=== PATIENT | male | born 1940 | race Caucasian/White ===

== ENCOUNTER 2016-05-15 10:04 | Emergency (ER) | payer OTHER ==
[~2016-05-15] VITALS: Ht 177.8 cm; Wt 63.5 kg
--- NOTE | ~2016-05-15 | EKG ---
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 [place]: [place] : 1940 Requested By: Kasandra Santamaria Order Number: [id number] MD: Afshin Schaffer Measurements Intervals [place] Rate: 66 P: 28 ND: 198 QRS: -16 QRSD: 92 T: 40 QT: 415 QTc: 435 Interpretive Statements Sinus rhythm Borderline left axis deviation No previous ECG available for comparison Electronically Signed On 05-15-2016 11:14:07 PHARMACY RETAIL SUPPORT SPECIALIST by Afshin Schaffer [email or web address] <ELECTRONICALLY SIGNED> By: Afshin Schaffer MD 05/15/16 1114 1049 1049 Afshin Schaffer MD /EPI
[2016-05-15 11:14] LABS: ABSOLUTE NEUTROPHILS 6.9 thou/uL (1.4-8.2); BASOPHILS 0.4 % (0.0-2.0); HEMATOCRIT 46.7 % (42.0-52.0); HEMOGLOBIN 15.7 gm/dL (14.0-18.0); LYMPHOCYTES 13.4 % (24.0-44.0); MCH 31.1 pg (26.0-34.0); MCHC 33.7 % (28.0-37.0); MCV 92.3 fL (80.0-100.0); PLATELET COUNT 242 thou/uL (150-400); POLYS 75.2 % (36.0-66.0); RBC 5.06 mil/uL (4.50-6.00); RDW 13.4 % (10.5-14.5); WBC 9.1 thou/uL (4.0-11.0)
[2016-05-15 11:15] LABS: MANUAL DIFF NO
[2016-05-15 11:26] LABS: APTT 26.8 Seconds (24.5-32.8); INR 1.1; PROTIME 11.1 Seconds (9.3-11.4)
[2016-05-15 11:32] LABS: POTASSIUM 3.8 mmol/L (3.5-5.1)
[2016-05-15 11:37] LABS: ALBUMIN 3.4 g/dL (3.4-5.0); TOTAL BILIRUBIN 0.9 mg/dL (<0.1-1.0); TOTAL PROTEIN 7.1 g/dL (6.4-8.2)
[2016-05-15 12:40] LABS: URINE BILIRUBIN NEGATIVE (Negative); URINE BLOOD NEGATIVE (Negative); URINE COLOR YELLOW; URINE GLUCOSE-RANDOM* NEGATIVE (Negative); URINE KETONES 2+ (Negative); URINE NITRITE NEGATIVE (Negative); URINE PROTEIN (DIPSTICK) NEGATIVE (Negative); URINE SPECIFIC GRAVITY 1.015 (1.003-1.035); URINE UROBILINOGEN 0.2 E.U./dl (0.2-1.0)
[2016-05-15 14:03] VITALS: BP 114/73
== END 2016-05-15 14:03 | disposition home or self-care (01) ==
LOC: ER 10:04
PROVIDERS: Physician Assistant
DX: S00.83XA Contusion of other part of head, initial encounter (principal); R42 Dizziness and giddiness; E86.9 Volume depletion, unspecified; W00.0XXA Fall on same level due to ice and snow, initial encounter; Y93.89 Activity, other specified; Y92.89 Other specified places as the place of occurrence of the external cause; Y99.8 Other external cause status

== ENCOUNTER 2016-09-22 23:07 | Emergency (ER) | payer OTHER ==
[~2016-09-22] VITALS: Ht 177.8 cm; Wt 65.8 kg
--- NOTE | ~2016-09-22 | EKG ---
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 : 1940 Requested By: Desmond Parker Order Number: [id number] MD: Tyshawn Ann Measurements Intervals [place] Rate: 99 P: 74 [place]: 202 QRS: 16 QRSD: 85 T: 57 QT: 349 QTc: 448 Interpretive Statements Sinus rhythm Low voltage, extremity leads Baseline wander in lead(s) V6 Compared to ECG 05/15/2016 10:49:50 Low QRS voltage now present Electronically Signed On 09-23-2016 14:04:15 CDT by Tyshawn Ann [email or web address] <ELECTRONICALLY SIGNED> By: Tyshawn Ann MD, [facility] 09/23/16 1404 32 32 Tyshawn Ann MD, [facility] /EPI
[2016-09-22] MEDS ORDERED: ADVAIR HFA115 MCG/21 INH (23:14)
[2016-09-22] MEDS ORDERED: VENTOLIN HFA 1818 GM INH (23:14)
[2016-09-22 23:43] LABS: ABSOLUTE NEUTROPHILS 6.2 thou/uL (1.4-8.2); BASOPHILS 0.7 % (0.0-2.0); EOSINOPHILS 8.6 % (0.0-3.0); HEMATOCRIT 47.2 % (42.0-52.0); HEMOGLOBIN 16.1 gm/dL (14.0-18.0); LYMPHOCYTES 20.3 % (24.0-44.0); MCH 32.2 pg (26.0-34.0); MCHC 34.2 g/dL (28.0-37.0); MCV 94.2 fL (80.0-100.0); MONOCYTES 10.6 % (1.0-8.0); PLATELET COUNT 265 thou/uL (150-400); POLYS 59.8 % (36.0-66.0); RBC 5.02 mil/uL (4.50-6.00); RDW 13.9 % (10.5-14.5); WBC 10.4 thou/uL (4.0-11.0)
[2016-09-22 23:45] LABS: MANUAL DIFF NO
[2016-09-22 23:51] LABS: ANION GAP 12 mmol/L (7-16); BUN 18 mg/dL (7-18); CALCIUM 9.3 mg/dL (8.5-10.1); CHLORIDE 102 mmol/L (98-107); CO2 27 mmol/L (21-32); GLUCOSE 96 mg/dL (74-106); POTASSIUM 4.4 mmol/L (3.5-5.1); SODIUM 141 mmol/L (136-145)
[2016-09-22 23:55] LABS: APTT 28.2 Seconds (24.5-32.8); PROTIME 10.5 Seconds (9.3-11.4)
[2016-09-23 00:05] LABS: ALBUMIN 4.1 g/dL (3.4-5.0); ALKALINE PHOSPHATASE 61 U/L (46-116); NT-PRO BRAIN NAT PEPTIDE 66 pg/mL (<300); SGOT 23 U/L (15-37); SGPT 26 U/L (30-65); TOTAL BILIRUBIN 0.7 mg/dL (<0.1-1.0); TOTAL PROTEIN 7.7 g/dL (6.4-8.2); TROPONIN-I < 0.04 ng/mL (<0.04-0.07)
[2016-09-23] MEDS ORDERED: VENTOLIN HFA 1818 GM INH (01:00)
[2016-09-23] MEDS ORDERED: PREDNISONE 20 M20 MG PO (01:00)
[2016-09-23 01:12] VITALS: BP 120/68
== END 2016-09-23 01:14 | disposition home or self-care (01) ==
LOC: ER 23:07
PROVIDERS: Emergency Medicine
DX: J45.901 Unspecified asthma with (acute) exacerbation (principal)

== ENCOUNTER 2016-11-04 12:49 | Emergency (ER) | payer OTHER ==
[~2016-11-04] VITALS: Ht 180.3 cm; Wt 63.5 kg
[~2016-11-04 12:49] MED LIST: ADVAIR HFA115 MCG/21 INH; PREDNISONE 20 M20 MG PO; VENTOLIN HFA 1818 GM INH
[2016-11-04] MEDS ORDERED: PREDNISONE 20 M20 MG PO (13:54)
[2016-11-04 14:06] VITALS: BP 114/70
== END 2016-11-04 14:15 | disposition home or self-care (01) ==
LOC: ER 12:49
DX: J45.901 Unspecified asthma with (acute) exacerbation (principal)

== ENCOUNTER 2016-12-14 18:57 | Emergency (ER) | payer OTHER ==
[~2016-12-14] VITALS: Ht 177.8 cm; Wt 64.9 kg
--- NOTE | ~2016-12-14 | EKG ---
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 : 1940 Requested By: Maureen Echeverria Order Number: [id number] MD: Tyshawn Ann Measurements Intervals [place] Rate: 83 P: 49 [place]: 180 QRS: -5 QRSD: 84 T: 56 QT: 389 QTc: 457 Interpretive Statements Sinus rhythm Abnormal R-wave progression, early transition Compared to ECG 09/22/2016 23:33:18 No significant changes Electronically Signed On 12-15-2016 9:57:01 CDT by Tyshawn Ann [email or web address] <ELECTRONICALLY SIGNED> By: Tyshawn Ann MD, [facility] 12/15/16 0957 194 42 Tyshawn Ann MD, FACC /EPI
[2016-12-14 20:05] LABS: ABSOLUTE NEUTROPHILS 3.4 thou/uL (1.4-8.2); BASOPHILS 1.2 % (0.0-2.0); EOSINOPHILS 15.5 % (0.0-3.0); HEMATOCRIT 46.9 % (42.0-52.0); HEMOGLOBIN 15.9 gm/dL (14.0-18.0); LYMPHOCYTES 30.7 % (24.0-44.0); MCH 31.8 pg (26.0-34.0); MCHC 33.9 g/dL (28.0-37.0); MCV 93.8 fL (80.0-100.0); MONOCYTES 11.4 % (1.0-8.0); PLATELET COUNT 269 thou/uL (150-400); POLYS 41.2 % (36.0-66.0); RDW 13.7 % (10.5-14.5); WBC 8.2 thou/uL (4.0-11.0)
[2016-12-14 20:06] LABS: MANUAL DIFF NO
[2016-12-14 20:13] LABS: ANION GAP 9 mmol/L (7-16); BUN 19 mg/dL (7-18); CALCIUM 9.7 mg/dL (8.5-10.1); CHLORIDE 106 mmol/L (98-107); CO2 27 mmol/L (21-32); CREATININE 1.1 mg/dL (0.7-1.3); GLUCOSE 77 mg/dL (74-106); POTASSIUM 4.3 mmol/L (3.5-5.1); SODIUM 142 mmol/L (136-145)
[2016-12-14 20:16] LABS: TROPONIN-I < 0.04 ng/mL (<0.04-0.07)
[2016-12-14] MEDS ORDERED: ZPAK PO ×2 (22:01→22:04)
[2016-12-14] MEDS ORDERED: PREDNISONE50 MG PO ×2 (22:01→22:04)
[2016-12-14 22:18] VITALS: BP 116/67
== END 2016-12-14 22:17 | disposition home or self-care (01) ==
LOC: ER 18:57
PROVIDERS: Emergency Medicine
DX: J45.901 Unspecified asthma with (acute) exacerbation (principal)

== ENCOUNTER 2017-01-30 21:49 | Emergency (ER) | payer OTHER ==
[~2017-01-30] VITALS: Ht 177.8 cm; Wt 65.8 kg
[~2017-01-30 21:49] MED LIST changes: +PREDNISONE50 MG PO; +ZPAK PO
[2017-01-30] MEDS ORDERED: PREDNISONE 20 M20 MG PO (23:28)
[2017-01-30] MEDS ORDERED: VENTOLIN HFA 1818 GM INH (23:28)
[2017-01-30 23:47] VITALS: BP 130/87
== END 2017-01-30 23:48 | disposition home or self-care (01) ==
LOC: ER 21:49
DX: J45.901 Unspecified asthma with (acute) exacerbation (principal)

== ENCOUNTER 2017-07-16 20:33 | Emergency (ER) | payer OTHER ==
[~2017-07-16] VITALS: Ht 177.8 cm; Wt 65.8 kg
[~2017-07-16 20:33] MED LIST changes: +PROAIR HFA8.5 GM INH
[2017-07-16 21:10] LABS: ABSOLUTE NEUTROPHILS 4.2 thou/uL (1.4-8.2); BASOPHILS 0.9 % (0.0-2.0); EOSINOPHILS 15.3 % (0.0-3.0); HEMATOCRIT 46.9 % (42.0-52.0); HEMOGLOBIN 15.4 gm/dL (14.0-18.0); LYMPHOCYTES 26.7 % (24.0-44.0); MCH 30.4 pg (26.0-34.0); MCHC 32.9 g/dL (28.0-37.0); MCV 92.4 fL (80.0-100.0); PLATELET COUNT 271 thou/uL (150-400); POLYS 47.1 % (36.0-66.0); RBC 5.07 mil/uL (4.50-6.00); RDW 14.6 % (10.5-14.5)
[2017-07-16 21:17] LABS: CALCIUM 10.2 mg/dL (8.5-10.1); CREATININE 1.1 mg/dL (0.7-1.3); POTASSIUM 3.9 mmol/L (3.5-5.1)
[2017-07-16] MEDS ORDERED: PREDNISONE 20 M20 MG PO (21:55)
[2017-07-16] MEDS ORDERED: DOXYCYCLINE 10100 MG PO (21:55)
== END 2017-07-16 22:10 | disposition home or self-care (01) ==
LOC: ER 20:33
PROVIDERS: Emergency Medicine
DX: J98.9 Respiratory disorder, unspecified (principal); J45.909 Unspecified asthma, uncomplicated

== ENCOUNTER 2018-02-15 05:29 | Emergency (ER) | payer OTHER ==
[~2018-02-15] VITALS: Ht 177.8 cm; Wt 65.8 kg
--- NOTE | ~2018-02-15 | EKG ---
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
[~2018-02-15 05:29] MED LIST changes: +DOXYCYCLINE 10100 MG PO
[2018-02-15] MEDS ORDERED: PREDNISONE 20 M20 MG PO (05:58)
[2018-02-15] MEDS ORDERED: VENTOLIN HFA 1818 GM INH (05:58)
[2018-02-15 06:49] LABS: ABSOLUTE NEUTROPHILS 2.8 thou/uL (1.4-8.2); EOSINOPHILS 12.3 % (0.0-3.0); HEMATOCRIT 50.2 % (42.0-52.0); HEMOGLOBIN 16.9 gm/dL (14.0-18.0); LYMPHOCYTES 38.2 % (24.0-44.0); MCH 31.6 pg (26.0-34.0); MCHC 33.6 g/dL (28.0-37.0); MCV 94.1 fL (80.0-100.0); MONOCYTES 10.4 % (1.0-8.0); PLATELET COUNT 291 thou/uL (150-400); POLYS 38.1 % (36.0-66.0); RBC 5.34 mil/uL (4.50-6.00); RDW 13.9 % (10.5-14.5); WBC 7.5 thou/uL (4.0-11.0)
[2018-02-15 07:24] VITALS: BP 107/60
== END 2018-02-15 07:25 | disposition home or self-care (01) ==
LOC: ER 05:29
PROVIDERS: Emergency Medicine
DX: J45.901 Unspecified asthma with (acute) exacerbation (principal)

== ENCOUNTER 2018-12-25 21:43 | Emergency (ER) | payer OTHER ==
[~2018-12-25] VITALS: Ht 182.9 cm; Wt 68.0 kg
[2018-12-25 22:37] LABS: ABSOLUTE NEUTROPHILS 3.3 thou/uL (1.4-8.2); BASOPHILS 1.6 % (0.0-2.0); EOSINOPHILS 13.3 % (0.0-3.0); HEMATOCRIT 46.6 % (42.0-52.0); HEMOGLOBIN 15.5 gm/dL (14.0-18.0); MCH 30.9 pg (26.0-34.0); MCHC 33.2 g/dL (28.0-37.0); MCV 93.1 fL (80.0-100.0); MONOCYTES 10.3 % (1.0-8.0); PLATELET COUNT 233 thou/uL (150-400); POLYS 48.8 % (36.0-66.0); RDW 13.9 % (10.5-14.5); WBC 6.8 thou/uL (4.0-11.0)
[2018-12-25 22:47] LABS: ANION GAP 9 mmol/L (7-16); BUN 14 mg/dL (7-18); CALCIUM 9.3 mg/dL (8.5-10.1); CHLORIDE 103 mmol/L (98-107); CO2 28 mmol/L (21-32); GLUCOSE 97 mg/dL (74-106); POTASSIUM 4.1 mmol/L (3.5-5.1); SODIUM 140 mmol/L (136-145)
[2018-12-25 22:57] LABS: ALBUMIN 3.8 g/dL (3.4-5.0); MAGNESIUM 2.1 mg/dL (1.8-2.4); SGOT 18 U/L (15-37); SGPT 23 U/L (30-65); TOTAL BILIRUBIN 0.5 mg/dL (<0.1-1.0); TROPONIN-I <0.06 ng/mL (<0.06)
[2018-12-25] MEDS ORDERED: VENTOLIN HFA 1818 GM INH (23:06)
[2018-12-25] MEDS ORDERED: PREDNISONE 20 M20 MG PO (23:06)
[2018-12-25 23:39] VITALS: BP 127/76
--- NOTE | 2018-12-30 07:31 | EKG ---
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
== END 2018-12-25 23:42 | disposition home or self-care (01) ==
LOC: ER 21:43
PROVIDERS: Emergency Medicine
DX: J45.901 Unspecified asthma with (acute) exacerbation (principal)